=== PATIENT | female | born 1950 | race Caucasian/White ===

== ENCOUNTER 2017-06-21 14:34 | Inpatient (IN) | payer MEDICARE, MEDICAID ==
[~2017-06-21] VITALS: Ht 147.3 cm; Wt 65.8 kg
[~2017-06-21 14:34] MED LIST: FURO40TA4 PO; LACT10SO3 PO; MAGN400T23 PO; POM PO; SPIR100T21 PO; [UNRECOGNIZED DRUG - CODE] PO
[2017-06-21] MEDS ORDERED: PANTOPRAZOLE 40 MG/10 ML VIAL IV STA (15:26)
[2017-06-21 16:02] LABS: Basophils # (auto) 0 uL; Basophils % (auto) 0.4 % (0.0-2.0); Eosinophils # (auto) 0 uL; Eosinophils % (auto) 0.3 % (0.0-7.0); Hematocrit 29.8 % (36.0-46.0); Hemoglobin 9.9 g/dL (12.2-16.2); Lymphocytes # (auto) 0.6 uL; Lymphocytes % (auto) 6.6 % (10.0-50.0); Mean Corpuscular Hemoglobin 30.5 pg (28.0-32.0); Mean Corpuscular Hgb Conc. 33.4 g/dL (32.0-36.0); Mean Corpuscular Volume 91.4 fL (80.0-100.0); Monocytes # (auto) 1.2 uL; Monocytes % (auto) 13.7 % (0.0-12.0); Neutrophils # (auto) 6.9 uL; Nucleated Red Blood Cells % 0.2 %; Platelet Count (auto) 186 10^3/uL (140-450); Red Blood Cells 3.26 10^6/uL (4.0-5.20); White Blood Cell 8.7 10^3/uL (4.4-10.8)
[2017-06-21 16:10] LABS: Albumin 2.4 g/dL (3.4-5.0); BUN/Creatinine Ratio 28.2; Bilirubin, Total 1.9 mg/dL (0.2-1.0); Calcium 8.4 mg/dL (8.5-10.1); Potassium 4.5 mmol/L (3.5-5.1); Total Protein 8.4 g/dL (6.4-8.2)
[2017-06-21 16:46] LABS: Red Cell Distribution Width 20.9 % (11.8-14.3)
[2017-06-21] MEDS ORDERED: PROMETHAZINE HCL 25 MG/ML 1ML IV PRN (17:00)
[2017-06-21] MEDS ORDERED: MORPHINE SULFATE 10 MG/ML INJ 1ML SDV IV PRN ×2 (17:00)
[2017-06-21] MEDS ORDERED: TEMAZEPAM 15 MG CAP PO PRN (17:00)
[2017-06-21] MEDS ORDERED: LORazepam 0.5 MG TAB PO PRN (17:00)
[2017-06-21] MEDS ORDERED: NITROGLYCERIN 0.4 MG SL TAB SL PRN (17:00)
[2017-06-21] MEDS ORDERED: cefTRIAXone 1GM/50ML D5W 50 ML IV ONE (17:30)
[2017-06-21] MEDS ORDERED: PANTOPRAZOLE 40 MG TAB PO ONE (17:30)
[2017-06-21] MEDS: SPIRONOLACTONE 25 MG TAB PO SCH (17:30)
[2017-06-21] MEDS ORDERED: MAGNESIUM OXIDE 400 MG TAB PO ONE (17:30)
[2017-06-21 17:44] LABS: Lipase 156 U/L (73-393)
[2017-06-21] MEDS ORDERED: FUROSEMIDE 40 MG/4 ML VIAL IV ONE (18:15)
[2017-06-21] MEDS: metroNIDAZOLE 500MG/100ML 100 ML IV SCH (18:29)
[2017-06-21 21:11] VITALS: BP 90/61
[2017-06-21 22:00] VITALS: BP 90/61
[2017-06-21] MEDS: FUROSEMIDE 40 MG/4 ML VIAL IV SCH (22:01)
[2017-06-21] MEDS ORDERED: POTA10TA51 PO (23:09)
[2017-06-21 23:38] VITALS: BP 109/61
[2017-06-22] MEDS: metroNIDAZOLE 500MG/100ML 100 ML IV SCH ×4 (00:32→17:38)
[2017-06-22 05:00] VITALS: BP 99/58
[2017-06-22 05:23] LABS: Urine Bacteria NONE SEEN /hpf (None Seen); Urine Blood Negative /uL (Negative); Urine Mucus FEW (None Seen); Urine Specific Gravity 1.012 (1.001-1.035); Urine WBC 1 /hpf (0 - 5)
[2017-06-22 06:12] LABS: BUN/Creatinine Ratio 30.7; Bilirubin, Total 1.4 mg/dL (0.2-1.0); Calcium 7.7 mg/dL (8.5-10.1); Potassium 4.1 mmol/L (3.5-5.1); Total Protein 7.1 g/dL (6.4-8.2)
[2017-06-22 08:00] VITALS: BP 89/52
[2017-06-22] MEDS: FUROSEMIDE 40 MG/4 ML VIAL IV SCH ×2 (10:00→21:18)
[2017-06-22] MEDS: MAGNESIUM OXIDE 400 MG TAB PO SCH (10:46)
[2017-06-22] MEDS: cefTRIAXone 1GM/50ML D5W 50 ML IV SCH (10:46)
[2017-06-22] MEDS: PANTOPRAZOLE 40 MG TAB PO SCH (10:47)
[2017-06-22] MEDS: SPIRONOLACTONE 25 MG TAB PO SCH (10:47)
[2017-06-22] MEDS: MORPHINE SULFATE 10 MG/ML INJ 1ML SDV IV PRN (12:14)
[2017-06-22 13:00] VITALS: BP 91/60
[2017-06-22 17:00] VITALS: BP 76/46
[2017-06-22 21:55] VITALS: BP 124/86
[2017-06-23] MEDS: metroNIDAZOLE 500MG/100ML 100 ML IV SCH ×4 (00:49→17:51)
[2017-06-23 04:57] VITALS: BP 95/57
[2017-06-23] MEDS: cefTRIAXone 1GM/50ML D5W 50 ML IV SCH (08:51)
[2017-06-23 09:00] VITALS: BP 98/50
[2017-06-23 09:26] LABS: Basophils # (auto) 0 uL; Hemoglobin 8.3 g/dL (12.2-16.2); Monocytes # (auto) 0.7 uL; Neutrophils # (auto) 3.2 uL
[2017-06-23 09:27] LABS: Basophils % (auto) 0.3 % (0.0-2.0); Eosinophils # (auto) 0 uL; Eosinophils % (auto) 1.1 % (0.0-7.0); Hematocrit 24.6 % (36.0-46.0); Lymphocytes # (auto) 0.4 uL; Lymphocytes % (auto) 9.9 % (10.0-50.0); Mean Corpuscular Hemoglobin 30.9 pg (28.0-32.0); Mean Corpuscular Hgb Conc. 33.7 g/dL (32.0-36.0); Mean Corpuscular Volume 91.8 fL (80.0-100.0); Monocytes % (auto) 16.4 % (0.0-12.0); Neutrophils % (auto) 72.3 % (37.0-80.0); Platelet Count (auto) 128 10^3/uL (140-450); Red Blood Cells 2.68 10^6/uL (4.0-5.20); White Blood Cell 4.4 10^3/uL (4.4-10.8)
[2017-06-23 09:47] LABS: Albumin 1.9 g/dL (3.4-5.0); BUN/Creatinine Ratio 25.5; Bilirubin, Total 1.2 mg/dL (0.2-1.0); Calcium 7.9 mg/dL (8.5-10.1); Potassium 4.5 mmol/L (3.5-5.1); Red Cell Distribution Width 20.3 % (11.8-14.3); Total Protein 7.1 g/dL (6.4-8.2)
[2017-06-23] MEDS ORDERED: SPIRONOLACTONE 25 MG TAB PO SCH (10:00)
[2017-06-23] MEDS: MAGNESIUM OXIDE 400 MG TAB PO SCH (12:15)
[2017-06-23] MEDS: PANTOPRAZOLE 40 MG TAB PO SCH (12:15)
[2017-06-23] MEDS: SPIRONOLACTONE 25 MG TAB PO SCH (12:16)
[2017-06-23 13:00] VITALS: BP 95/66
[2017-06-23] MEDS: MORPHINE SULFATE 10 MG/ML INJ 1ML SDV IV PRN (14:08)
[2017-06-23 17:00] VITALS: BP 77/53
[2017-06-23 22:00] VITALS: BP 83/48
[2017-06-24] VITALS (7 sets, daily range): BP systolic 79–131; BP diastolic 43–56
[2017-06-24] MEDS: MORPHINE SULFATE 10 MG/ML INJ 1ML SDV IV PRN ×2 (01:33→11:35)
[2017-06-24] MEDS: metroNIDAZOLE 500MG/100ML 100 ML IV SCH ×3 (05:32→12:26)
[2017-06-24 06:20] LABS: INR 1.32 (0.9-1.15); Partial Thromboplastin Time 30.8 sec (22.64-33.71); Prothrombin Time 14.4 sec (9.37-12.3)
[2017-06-24] MEDS: HARVONI PO SCH (10:00)
[2017-06-24] MEDS ORDERED: SPIRONOLACTONE 25 MG TAB PO SCH (10:00)
[2017-06-24] MEDS: SPIRONOLACTONE 25 MG TAB PO SCH (11:33)
[2017-06-24] MEDS: cefTRIAXone 1GM/50ML D5W 50 ML IV SCH (11:33)
[2017-06-24] MEDS: MAGNESIUM OXIDE 400 MG TAB PO SCH (11:34)
[2017-06-24] MEDS: FUROSEMIDE 20 MG TAB PO SCH (11:34)
[2017-06-24] MEDS: PANTOPRAZOLE 40 MG TAB PO SCH (11:34)
[2017-06-24 19:51] LABS: % Iron Saturation 8.7 % (15-50)
[2017-06-25 05:07] VITALS: BP 88/44
[2017-06-25 05:53] LABS: Hematocrit 23.7 % (36.0-46.0); Hemoglobin 8.1 g/dL (12.2-16.2)
[2017-06-25 06:23] LABS: Calcium 7.6 mg/dL (8.5-10.1); Potassium 4.3 mmol/L (3.5-5.1)
[2017-06-25 09:18] VITALS: BP 86/47
[2017-06-25] MEDS: SPIRONOLACTONE 25 MG TAB PO SCH (10:00)
[2017-06-25] MEDS: FUROSEMIDE 20 MG TAB PO SCH (10:00)
[2017-06-25] MEDS: HARVONI PO SCH (10:00)
[2017-06-25] MEDS ORDERED: SPIR100T21 PO (11:42)
[2017-06-25] MEDS ORDERED: FURO40TA PO (11:42)
[2017-06-25] MEDS ORDERED: LACTULOSE 20Gm/30ML SOLN PO SCH (12:00)
[2017-06-25 12:30] VITALS: BP 76/46
[2017-06-25 16:38] VITALS: BP 75/44
== END 2017-06-25 16:40 | DRG 871 ==
LOC: EDBD 14:34 → ER 14:34 → TELE 14:35 → TELE-WESTW 19:45
PROVIDERS: ADMIT Internal Medicine; ATTEND Internal Medicine
PROC: 0W9G30Z Drainage of Peritoneal Cavity with Drainage Device, Percutaneous Approach (ICD-10-PCS; principal; 2017-06-24)
DX: A41.9 Sepsis, unspecified organism (principal); K65.9 Peritonitis, unspecified; J90 Pleural effusion, not elsewhere classified; R18.8 Other ascites; K74.60 Unspecified cirrhosis of liver; R16.1 Splenomegaly, not elsewhere classified; K42.9 Umbilical hernia without obstruction or gangrene; B19.20 Unspecified viral hepatitis C without hepatic coma; D63.8 Anemia in other chronic diseases classified elsewhere; Z80.0 Family history of malignant neoplasm of digestive organs; Z87.442 Personal history of urinary calculi; Z90.49 Acquired absence of other specified parts of digestive tract
CPT/HCPCS: 10030; 36415; 49083; 71010; 74176; 76700; 76942; 80048; 80053; 81001; 82140; 82150; 83540; 83550; 83690; 84443; 84484; 85014; 85018; 85025; 85610; 85730; 87045; 87081; 87493; 87899; 93005; 94761; 96374; 96375; C9113; J0696; J3490